=== PATIENT | female | born 1985 ===

== ENCOUNTER 2024-11-16 15:39 | Outpatient (REF) | payer OTHER, SELFPAY ==
--- NOTE | 2024-11-16 15:10 | PAPFT_PTH ---
PATIENT: Rhea Bruce LOC: [facility] U#:[id number] AGE/SX: 39/F ROOM: RE11/16/[address]: Key Fraser NP : 1985 BED: DIS: 11/16/2024 SPEC #: [id number] RECD: 11/16/24 16:56 STATUS: DADA RETamra #: [id number] ALEXANDRA: 11/16/24 15:[address]: Key Fraser NP DEPT: [facility] Cytology RECD BY: Ana Verdugo ENTERED: 11/16/24 16:56 SP TYPE: PAPFT OT DR: Unknown,Unknown Tissues: 1 - CX/ENDOCX FOR PAP SMEARS Procedures: PAP THIN PREP/[facility] Screening HPV DNA PROBE Comments: [id number] (HPV 16 & 18/45)
== END 2024-11-16 15:40 | disposition home or self-care (01) ==
LOC: LBN 15:39
PROVIDERS: Visit Provider Nurse Practitioner Women's Health
DX: Z12.4 Encounter for screening for malignant neoplasm of cervix (principal)
CPT/HCPCS: 88142; 87624